=== PATIENT | male | born 1980 | race Caucasian/White ===

== ENCOUNTER 2022-03-27 16:44 | Emergency (ER) | payer OTHER ==
[~2022-03-27] VITALS: Ht 172.7 cm; Wt 91.2 kg
[2022-03-27 16:47] VITALS: BP 132/76
== END 2022-03-27 17:38 | disposition left against medical advice (07) ==
LOC: EDH 16:44
DX: Z53.21 Procedure and treatment not carried out due to patient leaving prior to being seen by health care provider (principal)